=== PATIENT | male | born 1990 | race Caucasian/White ===

== ENCOUNTER 2025-08-18 19:21 | Emergency (ER) | payer OTHER ==
[~2025-08-18] VITALS: Ht 175.3 cm; Wt 77.1 kg
[2025-08-18] MEDS ORDERED: HYDROmorphone HCl/Pf 1MG SYR IV ONE (19:30)
[2025-08-18] MEDS ORDERED: CefTRIAXone Sodium 2,000 MG in NS 100 ML IV ONE (19:35)
[2025-08-18 19:41] LABS: BASOPHILS ABSOLUTE AUTO 0.06 K/mm3 (0.00-0.23); BASOPHILS PERCENT AUTO 0 % (0-2); EOSINOPHILS ABSOLUTE AUTO 0.01 K/mm3 (0.00-0.68); EOSINOPHILS PERCENT AUTO 0 % (0-6); Hematocrit 35.6 % (37.0-53.0); Hemoglobin 12.6 g/dL (13.5-17.5); IMMATURE GRAN ABSOLUTE AUTO 0.07 K/mm3 (0.00-0.10); IMMATURE GRAN PERCENT AUTO 0 % (0-1); LYMPHOCYTES ABSOLUTE AUTO 1.17 K/mm3 (0.84-5.20); LYMPHOCYTES PERCENT AUTO 7 % (21-46); MONOCYTES ABSOLUTE AUTO 0.84 K/mm3 (0.16-1.47); MONOCYTES PERCENT AUTO 5 % (4-13); Mean Corpuscular HGB Conc 35.4 g/dL (31.5-36.5); Mean Corpuscular Volume 88 fL (80-100); NEUTROPHILS ABSOLUTE AUTO 15.66 K/mm3 (1.96-9.15); NEUTROPHILS PERCENT AUTO 88 % (41-73); NRBC ABSOLUTE 0.00 K/mm3 (0.00-0.02); NRBC Auto 0.0 /100 WBC (0.0-0.2); Platelet Count 312 K/mm3 (150-400); RDW Coefficient Variation 11.9 % (11.7-14.2); RDW Standard Deviation 38.8 fL (35.1-46.3)
[2025-08-18] MEDS ORDERED: ESTRADIOL PO (19:58)
[2025-08-18] MEDS ORDERED: OLAN2.5 PO (19:59)
[2025-08-18] MEDS ORDERED: ALDACTONE100 MG PO (19:59)
[2025-08-18] MEDS ORDERED: LYBALVI PO (19:59)
[2025-08-18] MEDS ORDERED: CYMBALTA60 M1 PO (19:59)
[2025-08-18 20:07] LABS: Alanine Aminotransfer (ALT/SGP 35.0 U/L (12-78); Albumin, Blood 3.9 g/dL (3.4-5.0); Albumin/Globulin Ratio 1.1 (0.8-1.8); Anion Gap 10.0 mmol/L (3-11); Aspartate Aminotrans (AST/SGOT 35.0 U/L (12-37); Bilirubin, Total 0.5 mg/dL (0.1-1.0); Blood Urea Nitrogen 9.0 mg/dL (8-24); CO2, Blood 22.0 mmol/L (21-32); Calcium, Blood 8.7 mg/dL (8.5-10.1); Chloride, Blood 106.0 mmol/L (98-108); Creatinine, Blood 0.65 mg/dL (0.60-1.20); Globulin, Blood 3.6 g/dL (2.2-4.0); Glucose, Blood 108.0 mg/dL (70-99); Potassium, Blood 4.3 mmol/L (3.5-5.5); Sodium, Blood 134.0 mmol/L (136-145); Total Protein, Blood 7.5 g/dL (6.4-8.2)
[2025-08-18] MEDS ORDERED: CEPH500 PO (20:23)
[2025-08-18] MEDS ORDERED: RX Prepack 6 Tabs Oxycodone 5mg UD ONE (20:25)
[2025-08-18] MEDS ORDERED: OxyCODONE 10/Acetamin 325 TABLET PO ONE (20:30)
== END 2025-08-18 22:37 | disposition home or self-care (01) ==
LOC: ER 19:21
PROVIDERS: Emergency Medicine
DX: S71.121A Laceration with foreign body, right thigh, initial encounter (principal); D64.9 Anemia, unspecified; S80.01XA Contusion of right knee, initial encounter; S90.812A Abrasion, left foot, initial encounter; S80.811A Abrasion, right lower leg, initial encounter; Z79.899 Other long term (current) drug therapy; V89.2XXA Person injured in unspecified motor-vehicle accident, traffic, initial encounter
CPT/HCPCS: 12035; 73552; 73560-RT; 80053; 82550; 83605; 85025; 90471; 90715; 93005; 93010; 96365-59; 96375-59; 99285-25; A9270; J0696; J1171